=== PATIENT | female | born 1985 | race Caucasian/White ===

== ENCOUNTER → 2016-11-20 | Outpatient (CLI) | payer OTHER ==
[~2016-11-20] MED LIST: OMNIPAQUE 350 MG/ML, 100ML BOTTLE ONE
== END | disposition home or self-care (01) ==
LOC: RAD 13:07
PROVIDERS: ATTEND Internal Medicine Geriatric Medicine
DX: K50.90 Crohn's disease, unspecified, without complications (principal); R10.9 Unspecified abdominal pain; R10.2 Pelvic and perineal pain
CPT/HCPCS: 74177; Q9967

== ENCOUNTER → 2017-03-12 | Outpatient (CLI) | payer OTHER | END | disposition home or self-care (01) | LOC: LAB 10:35 | PROVIDERS: ATTEND Obstetrics & Gynecology | DX: E22.9 Hyperfunction of pituitary gland, unspecified (principal) | CPT/HCPCS: 36415; 84146 ==